=== PATIENT | male | born 1955 | race Caucasian/White ===

== ENCOUNTER 2024-05-25 08:00 | Outpatient (CLI) | payer SELFPAY ==
--- NOTE | 2024-05-26 12:44 | XRAY Report ---
PROCEDURE: Ankle 3+V RT INDICATIONS: RIGHT ANKLE SPRAIN TECHNIQUE: 3 views of the ankle were acquired. COMPARISON: None. FINDINGS: Bones: Comminuted minimally displaced distal fibular fracture. There is no gross widening of the syn desmosis. Ankle mortise remains normally aligned. Soft tissues: Ankle edema is present. Achilles tendon appears normal. IMPRESSION: Comminuted minimally displaced distal fibular fracture. Reviewed by: Lilly Alvarez MD on 05/26/2024 12:43 PM PDT Approved by: Lilly Alvarez MD on 05/26/2024 12:43 PM PDT Station ID: [id number]
== END 2024-05-25 23:59 | disposition home or self-care (01) ==
LOC: DI.S 08:00
PROVIDERS: ATTEND Emergency Medicine
DX: S82.831A Other fracture of upper and lower end of right fibula, initial encounter for closed fracture (principal)